=== PATIENT | female | born 1960 | race African-American/Black ===

== ENCOUNTER 2017-06-15 17:51 | Emergency (ER) | payer SELFPAY ==
[2017-06-15 18:33] LABS: #Basophils 0.1 thou/uL (0.0-0.2); #Eosinphils 0.1 thou/uL (0.0-0.7); #Lymphocytes 3.4 thou/uL (1.20-3.40); #Monocytes 0.6 thou/uL (0.11-0.59); #Neutrophils 2.8 thou/uL (1.40-6.50); %Eosinophils 1.3 % (0.0-10.0); %Lymphocytes 48.9 % (21.0-51.0); %Monocytes 8.7 % (0.0-10.0); Hematocrit 42.8 % (36.0-47.0); Red Blood Cell (RBC) Count 4.81 mill/uL (4.20-5.40); White Blood Cell (WBC) Count 6.9 thou/uL (4.8-10.8)
[2017-06-15 18:52] LABS: ALT (SGPT) 8 U/L (8-55); AST (SGOT) 18 U/L (5-34); Alkaline Phosphatase 109 U/L (40-150); Anion Gap 17 mmol/L (10-20); BUN (Urea Nitrogen) 8 mg/dL (9.8-20.1); Bilirubin, Total 0.2 mg/dL (0.2-1.2); Calc. Creatinine Clearance 0 mL/min (70-130); Calcium 10.4 mg/dL (7.8-10.44); Carbon Dioxide 24 mmol/L (22-29); Chloride 101 mmol/L (98-107); Estimated GFR-MDRD Greater than 90
[2017-06-15 19:45] LABS: Bilirubin Negative (Negative); Blood, Urine Trace (Negative); Glucose, Urine (Dipstick) Negative (Negative); Ketone, Urine Negative (Negative); Nitrite Negative (Negative); Protein, Urine (Dipstick) Negative (Neg-Trace); Urobilinogen 0.2 mg/dL (0.2-1.0)
[2017-06-15 19:49] LABS: Bacteria/HPF Rare-Few HPF (None Seen); Hyaline Casts/LPF 4-6 HYALINE CAST LPF (0-3 Hyaline); RBC/HPF 0-3 HPF (0-3); WBC/HPF 0-3 HPF (0-3)
--- NOTE | 2017-06-15 20:16 | RAD ---
AP PELVIS: History: 57-year-old female with pelvic pain as well as hip pain, back pain, and leg pain with weakness and na usea. IMPRESSION: No fracture, dislocation, or other significant osseous abnormality involving the pelvis. POS: KRISH
--- NOTE | 2017-06-15 20:30 | RAD ---
CHEST PA AND LATERAL: History: 57-year-old female with history of cough, weakness, nausea, unable to eat, back pain and hip pain. Comparison: 03-13-09 FINDINGS: There is a poorly circumscribed mass in the superior segment of the left lower lobe measuring 2.6 x 3 cm in size overlying the left hilar region suspicious for primary lung malignancy. Heart size is wit hin normal limits. No significant pleural effusion. Right lung is clear. IMPRESSION: Approximately 2.6 x 3 cm diameter poorly circumscribed mass superior segment left lower lobe, evidenc e for primary lung malignancy. Non-emergent follow up CT scan and PET scan suggested for further eval uation. Code LN POS: KRISH
--- NOTE | 2017-06-15 20:42 | RAD ---
LEFT SHOULDER THREE VIEWS: History: 57-year-old female with history of weakness, nausea, pain. FINDINGS: There is no fracture or dislocation involving the shoulder. Again noted is a left sided lung mass. IMPRESSION: Left lung mass again noted. Mild degenerative changes left shoulder, without acute fracture or disloc ation or other acute osseous abnormality. POS: KENDALL
[2017-06-15] MEDS ORDERED: Dexamethasone 10 MG/ML VIAL ONE (22:51)
== END 2017-06-16 06:07 | disposition home or self-care (01) ==
LOC: ERS 17:51
DX: M19.012 Primary osteoarthritis, left shoulder (principal); M16.0 Bilateral primary osteoarthritis of hip; R91.8 Other nonspecific abnormal finding of lung field; F17.210 Nicotine dependence, cigarettes, uncomplicated
CPT/HCPCS: 36415; 71020; 72170; 80053; 81003; 81015; 85025; 93005; 94760; 96372; J1100